=== PATIENT | male | born 1960 | race Caucasian/White ===

== ENCOUNTER 2016-12-14 07:00 | Outpatient (CLI) | payer OTHER ==
[2016-12-14 07:40] LABS: eGFR (African) > 60; eGFR (Non-African) > 60
== END 2016-12-14 07:02 ==
LOC: LAB 07:00
PROVIDERS: ATTEND Family Medicine
DX: I10 Essential (primary) hypertension (principal); N40.0 Benign prostatic hyperplasia without lower urinary tract symptoms
CPT/HCPCS: 36415; 80053; 80061; 84153

== ENCOUNTER 2018-01-01 12:58 | Outpatient (CLI) | payer OTHER ==
[2018-01-01 13:11] LABS: eGFR (African) > 60; eGFR (Non-African) > 60
== END 2018-01-01 13:00 ==
LOC: LABRHC 12:58
PROVIDERS: ATTEND Family Medicine
DX: I10 Essential (primary) hypertension (principal); R73.9 Hyperglycemia, unspecified
CPT/HCPCS: 80053; 80061; 83036